=== PATIENT | male | born 1975 | race Caucasian/White ===

== ENCOUNTER 2020-07-06 20:09 | Emergency (ER) | payer OTHER ==
[2020-07-06 20:17] VITALS: BP 155/87
--- NOTE | 2020-07-06 20:21 | Emergency Department Report ---
Minor Respiratory - HPI Chief Complaint: Upper Respiratory Infection Stated Complaint: NASAL CONGESTION Time Seen by Provider: 07/06/20 20:17 Duration: 4 Days Pain Location: Facial Severity: mild Minor Respiratory: Yes Rhinorrhea, Yes Able to Tolerate Fluids, No Sore Throat, No Ear Pain, No Cough, No Sick Contacts, No Hemoptysis, No Chest Pain, No Shortness of Breath, No Fever Other History: This is a 44-year-old male nontoxic well in appearnce with no signs of distress presents with runny nose, nasal congestion, and frontal sinus pain x4 days. Patient stated has history of sinusitis and symptoms are similar. Patient denies any chest pain, shortness of breathe, fever, chills, nausea, vomiting, headache, stiff neck, abdominal pain, numbness or tingling. Denies any cough. Patient denies any recent travels, long car rides, or recent hospital stays. Denies any allergies. ED Review of Systems ROS: Stated complaint: NASAL CONGESTION Other details as noted in HPI Comment: All other systems reviewed and negative Constitutional: denies: chills, fever Eyes: denies: eye pain, eye discharge, vision change ENT: congestion. denies: ear pain, throat pain Respiratory: denies: cough, shortness of breath, wheezing Cardiovascular: denies: chest pain, palpitations Endocrine: no symptoms reported Gastrointestinal: denies: abdominal pain, nausea, diarrhea Genitourinary: denies: urgency, dysuria Musculoskeletal: denies: back pain, joint swelling, arthralgia Skin: denies: rash, lesions Neurological: denies: headache, weakness, paresthesias Psychiatric: denies: anxiety, depression Hematological/Lymphatic: denies: easy bleeding, easy bruising ED Past Medical Hx - Past Medical History Previous Medical History?: Yes Additional medical history: High cholestrol - Surgical History Past Surgical History?: No - Social History Smoking Status: Former Smoker Substance Use Type: Alcohol - Medications Home Medications: Home Medications Medication Instructions Recorded Confirmed Last Taken Type Amoxicillin/K Clav Tab [Augmentin 1 tab PO Q12HR #20 tab 07/06/20 Unknown Rx 875 mg] Minor Respiratory Exam - Exam General: Vital signs noted. No distress. Alert and acting appropriately. Positive frontal sinus tenderness. HEENT: Yes Moist Mucous Membranes, No Pharyngeal Erythema, No Pharyngeal Exudates, No Rhinorrhea, No Conjuctival Injection, No Frontal Tenderness, No Maxillary Tenderness Ear: Neither TM Bulge, Neither TM Erythema, Neither EAC Pain, Neither EAC Discharge Neck: Yes Supple, No Adenopathy Lungs: Yes Good Air Exchange, No Wheezes, No Ronchi, No Stridor, No Cough, No Labored Respirations, No Retractions, No Use of Accessory Muscles, No Other Abnormal Lung Sounds Heart: Yes Regular, No Murmur Abdomen: Yes Normal Bowel Sounds, No Tenderness, No Peritoneal Signs Skin: No Rash, No Edema Neurologic: Alert and oriented, no deficits. Musculoskeletal: Unremarkable. ED Course Vital Signs 07/06/20 20:15 Temperature 97.5 F L Pulse Rate 97 H Respiratory 18 Rate Blood Pressure 155/87 O2 Sat by Pulse 97 Oximetry - Reevaluation(s) Reevaluation #1: 07/06/20 20:19 Patient is speaking in full sentences with no signs of distress noted. ED Medical Decision Making - Medical Decision Making 44-year-old male that presents with sinusitis. Patient is stable and was examined by me. VSS. Will treat with Augmentin. Patient was instructed to Follow-up with a primary care doctor in 3-5 days or if symptoms worsen and continue return to emergency room as soon as possible. At time of discharge, the patient does not seem toxic or ill in appearance. No acute signs of distress noted. Patient agrees to discharge treatment plan of care. No further questions noted by the patient. Critical care attestation.: If time is entered above; I have spent that time in minutes in the direct care of this critically ill patient, excluding procedure time. ED Disposition Clinical Impression: Sinusitis Qualifiers: Sinusitis location: frontal Chronicity: acute Recurrence: non-recurrent Qualified Code(s): J01.10 - Acute frontal sinusitis, unspecified Disposition: DC-01 TO HOME OR SELFCARE Is pt being admited?: No Does the pt Need Aspirin: No Condition: Stable Instructions: Sinusitis, Adult, [id number] Additional Instructions: Follow-up with a primary care doctor in 3-5 days or if symptoms worsen and continue return to emergency room as soon as possible. Prescriptions: Amoxicillin/K Clav Tab [Augmentin 875 mg] 1 tab PO Q12HR #20 tab Referrals: MAGO MENDOZA MD [Referring] - 3-5 Days FELIZ JOAQUIN MD [Staff Physician] - 3-5 Days Forms: Work/School Release Form(ED) Time of Disposition: 20:20
== END 2020-07-06 22:00 | disposition home or self-care (01) ==
LOC: ED 20:09
DX: J32.9 Chronic sinusitis, unspecified (principal); Z79.2 Long term (current) use of antibiotics
CPT/HCPCS: 99282